=== PATIENT | female | born 1950 | race Caucasian/White ===

== ENCOUNTER 2019-06-30 02:04 | Observation (INO) | payer BC ==
[~2019-06-30] VITALS: Ht 165.1 cm; Wt 56.5 kg
[~2019-06-30 02:04] MED LIST: ACET325T33 PO; ATOR10TA65 PO; CITA10SO PO; CITA10TA5 PO; DOCU-144 PO; HYDR-3980 PO; LEVO25TA PO; NAPR-683 PO
[2019-06-30] MEDS ORDERED: NACL 0.9% 3 ML SYG IV SCH (05:00)
[2019-06-30] MEDS ORDERED: ONDANSETRON 4 MG INJ IV PRN (05:00)
[2019-06-30] MEDS ORDERED: DEXAMETHASONE 4 MG/ML 1 ML INJ IV ONE (05:00)
[2019-06-30] MEDS ORDERED: IBUPROFEN 200 MG TAB PO SCH (05:00)
[2019-06-30] MEDS ORDERED: ALBUTEROL/IPRATROPIUM (NEB) 3 ML AMP HHN PRN (05:00)
[2019-06-30 05:10] VITALS: BP 107/51; PULSE 56; RESP 18
[2019-06-30 05:27] VITALS: Ht 165.1 cm; Wt 56.5 kg
[2019-06-30 07:56] VITALS: BP 101/55; PULSE 69; RESP 18
[2019-06-30] MEDS: IBUPROFEN 400 MG TAB PO SCH ×4 (09:04→23:59)
[2019-06-30] MEDS: ENOXAPARIN 40 MG/0.4 ML SYG SC SCH (09:05)
[2019-06-30 14:25] VITALS: BP 106/54; PULSE 76; RESP 18
[2019-06-30] MEDS ORDERED: FLU VACC 2019-20(65YR UP)/PF 0.5 ML SYG IM* ONE (19:00)
[2019-06-30 20:22] VITALS: BP 131/60; PULSE 62; RESP 18
[2019-06-30] MEDS: ATORVASTATIN 10 MG TAB PO SCH (21:41)
[2019-06-30] MEDS: ACETAMINOPHEN 325 MG TAB PO PRN (21:41)
[2019-06-30] MEDS: CITALOPRAM 20 MG TAB PO SCH (21:42)
[2019-07-01 02:25] VITALS: BP 112/29; PULSE 58; RESP 18
[2019-07-01] MEDS: LEVOTHYROXINE 25 MCG TAB PO SCH (06:34)
[2019-07-01 07:47] VITALS: BP 113/55; PULSE 77; RESP 18
[2019-07-01] MEDS: ACETAMINOPHEN 325 MG TAB PO PRN (08:27)
[2019-07-01] MEDS: ENOXAPARIN 40 MG/0.4 ML SYG SC SCH (08:31)
[2019-07-01 14:00] VITALS: BP 120/60; PULSE 80; RESP 18
[2019-07-01 19:40] VITALS: BP 105/59; PULSE 67; RESP 18
[2019-07-01] MEDS: ATORVASTATIN 10 MG TAB PO SCH (21:03)
[2019-07-01] MEDS: CITALOPRAM 20 MG TAB PO SCH (21:04)
[2019-07-01] MEDS ORDERED: ZOLPIDEM 5 MG TAB PO ONE (23:15)
[2019-07-02] MEDS ORDERED: BETAMET NA PHOS/AC (6 MG/ML) 5ML INJ INJ ONE (05:00)
[2019-07-02] MEDS ORDERED: BUPIVACAINE 0.25% (MPF) 30 ML INJ INJ ONE (05:00)
[2019-07-02] MEDS: ACETAMINOPHEN 325 MG TAB PO PRN ×2 (06:54→12:54)
[2019-07-02] MEDS: LEVOTHYROXINE 25 MCG TAB PO SCH (06:54)
[2019-07-02 07:23] VITALS: BP 100/55; PULSE 77; RESP 18
[2019-07-02] MEDS: ENOXAPARIN 40 MG/0.4 ML SYG SC SCH (09:50)
[2019-07-02] MEDS ORDERED: FLU VACC 2019-20(65YR UP)/PF 0.5 ML SYG IM* ONE (16:00)
== END 2019-07-02 15:10 | disposition home health service (06) ==
LOC: E/R 02:04 → EDBD 02:51 → MS1 02:51
PROVIDERS: ADMIT Internal Medicine; ATTEND Internal Medicine
DX: M17.11 Unilateral primary osteoarthritis, right knee (principal); E03.9 Hypothyroidism, unspecified; E78.5 Hyperlipidemia, unspecified; F41.9 Anxiety disorder, unspecified
CPT/HCPCS: 73721; 80053; 80061; 83036; 83735; 84100; 84443; 85025; 96372; 96375; 97110; 97116; 97161; 97164; J0702; J1100; J1650; Z7500; Z7502; Z7610; G0378